=== PATIENT | male | born 1935 | race Two or more races ===

== ENCOUNTER 2017-07-06 14:31 | Outpatient (CLI) | payer OTHER | END 2017-07-06 14:40 | disposition home or self-care (01) | LOC: TOM 14:31 | DX: N40.0 Benign prostatic hyperplasia without lower urinary tract symptoms (principal) ==

== ENCOUNTER 2017-07-06 15:10 | Outpatient (CLI) | payer OTHER | END 2017-07-06 15:14 | disposition home or self-care (01) | LOC: LAB 15:10 | DX: R31.0 Gross hematuria (principal) ==